=== PATIENT | female | born 1995 | race African-American/Black ===

== ENCOUNTER 2018-08-11 04:57 | Emergency (ER) | payer MEDICARE, MEDICAID, SELFPAY ==
[2018-08-11 05:01] VITALS: BP 136/74; PULSE 101; RESP 22; TEMP 37.1; O2SAT 100
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
[2018-08-11 06:59] VITALS: BP 113/69; PULSE 80; RESP 18; TEMP 36.7; O2SAT 99
== END 2018-08-11 07:00 | disposition home or self-care (01) ==
LOC: ER 06:46
PROVIDERS: Emergency Provider Student in an Organized Health Care Education/Training Program; PCP Nurse Practitioner
DX: R07.81 Pleurodynia (principal); Y04.2XXA Assault by strike against or bumped into by another person, initial encounter
CPT/HCPCS: 99283; 71046

== ENCOUNTER 2018-08-15 01:25 | Emergency (ER) | payer MEDICARE, MEDICAID, SELFPAY ==
[2018-08-15 01:29] VITALS: PULSE 72; RESP 16; TEMP 36.3
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
[2018-08-15 02:09] VITALS: PULSE 72; RESP 16; TEMP 36.3
== END 2018-08-15 01:50 | disposition left before discharge ==
LOC: ER 02:31
PROVIDERS: Emergency Provider Physician Assistant; PCP Nurse Practitioner
DX: Z53.29 Procedure and treatment not carried out because of patient's decision for other reasons (principal); Z53.21 Procedure and treatment not carried out due to patient leaving prior to being seen by health care provider

== ENCOUNTER 2018-08-19 20:11 | Emergency (ER) | payer MEDICARE, MEDICAID, SELFPAY ==
[2018-08-19 20:22] VITALS: BP 99/38; PULSE 110; RESP 30; TEMP 36.8
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
--- NOTE | 2018-08-19 21:19 | NUR.NOTE ---
Verbal report to Petrona Esparza Note:
--- NOTE | 2018-08-19 21:26 | NUR.NOTE ---
Nursing Note: report received. Pt provided phone and phone number/card for [facility] services. Has not called at this time. Provided urine sample. Will continue to monitor. Has spoken to father, mother and friend via text and phone call- assisted and facilitated through ED staff.
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
[2018-08-20 00:08] VITALS: BP 105/85; PULSE 88; RESP 18; TEMP 36.8; O2SAT 98
== END 2018-08-20 00:08 | disposition home or self-care (01) ==
PROVIDERS: Emergency Provider Emergency Medicine; PCP Nurse Practitioner
DX: S00.83XA Contusion of other part of head, initial encounter (principal); S00.03XA Contusion of scalp, initial encounter; S10.93XA Contusion of unspecified part of neck, initial encounter; Y04.8XXA Assault by other bodily force, initial encounter; Y07.03 Male partner, perpetrator of maltreatment and neglect; J06.9 Acute upper respiratory infection, unspecified
CPT/HCPCS: 81025; 99285; 70450; 70486; 70490

== ENCOUNTER 2018-09-28 14:56 | Outpatient (REF) | payer MEDICARE, MEDICAID, SELFPAY ==
[2018-09-28 19:56] LABS: HCT 39.5 % (36.0-46.0); HGB 12.9 g/dL (12.0-15.5); Mean Corp. HGB Concentration 32.7 g/dL (32.0-36.0); Mean Corpuscular Hemoglobin 25.8 pg (27.0-33.0); Mean Platelet Volume 11.6 fL (8.0-11.0); Platelet Count 287 x1000/uL (130-400); RBC Distribution Width 15.4 % (11.7-14.6)
[2018-09-28 20:50] LABS: Anion Gap 11.5 mmol/L (3-11); BUN 12 mg/dL (7-18); CO2 26.5 mmol/L (21.0-32.0); CREATININE 0.88 mg/dL (0.55-1.02); Calcium 9.3 mg/dL (8.5-10.1); Chloride 100 mmol/L (98-107); Glucose 85 mg/dL (70-100); Potassium 4.2 mmol/L (3.5-5.1); Sodium 138 mmol/L (136-145)
== END 2018-09-28 15:16 ==
LOC: NCHCN 14:56
PROVIDERS: PCP Nurse Practitioner; Visit Provider Family Medicine
DX: F31.30 Bipolar disorder, current episode depressed, mild or moderate severity, unspecified (principal)
CPT/HCPCS: 80048; 85027; 83735; 84443

== ENCOUNTER 2022-10-11 09:08 | Emergency (ER) | payer OTHER, MEDICAID, SELFPAY ==
[2022-10-11 09:28] VITALS: BP 129/83; PULSE 81; RESP 16; TEMP 37; O2SAT 97
[2022-10-11] MEDS: Normal Saline 1,000 ML 1000 ML IV (09:49)
[2022-10-11 09:50] LABS: Abs Immature Grans 0.01 10^3/uL (0.0-0.06); Absolute Basophil Count 0.04 10^3/uL (0.0-0.2); Absolute Eosinophil Count 0.09 10^3/uL (0.0-0.7); Absolute Lymphocyte Count 1.23 10^3/uL (1.2-3.4); Absolute Monocyte Count 0.34 10^3/uL (0.1-0.8); Absolute Neutrophil Count 4.75 10^3/uL (1.2-6.7); Basophils % 0.6; Eosinophils % 1.4; HCT 38.7 % (36.0-46.0); HGB 12.2 g/dL (11.2-15.7); Immature Grans % 0.2; MCH 24.1 pg (27.0-33.0); MCHC 31.5 % (32.0-36.0); MCV 76 fL (80-95); MPV 10.9 fL (8.0-11.0); Monocytes % 5.3; Neutrophils % 73.5; Platelet Count 289 10^3/uL (130-400); RBC 5.07 10^6/uL (3.93-5.22); RDW 16.8 % (11.7-14.6); RDW-SD 46.2 fL; WBC 6.46 10^3/uL (4.4-10.8)
[2022-10-11 09:59] LABS: Bilirubin Negative (Negative); Blood Large (Negative); Clarity Sl Cloudy (Clear); Glucose Negative (Negative); Ketones Negative (Negative); Leukocyte Esterase Moderate (Negative); Nitrite Negative (Negative); Specific Gravity >= 1.030 (1.005-1.025); Urobilinogen 0.2 EU/dL (Up TO 0.2)
[2022-10-11] MEDS: ACETAMINOPHEN 1,000 MG/100 ML BTL 400 MG (09:59)
[2022-10-11 10:13] LABS: Bacteria Few HPF (Negative); C & S Indicated? No/Sq. Contamination; Casts Negative LPF (Negative); Crystals Negative HPF (Negative); Epithelial Cells Many HPF (Negative); Mucus Negative (Negative); RBC >50 HPF (0-2); WBC 20-50 HPF (0-5)
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
[2022-10-11 10:18] LABS: ALT 71 U/L (14-59); AST 25 U/L (15-37); Albumin 4.2 g/dL (3.4-5.0); Alkaline Phosphatase 75 U/L (46-116); Anion Gap 5.6 mmol/L (3-11); BUN 18 mg/dL (7-18); Bilirubin, Total 1.2 mg/dL (0.2-1.0); CO2 30.4 mmol/L (21.0-32.0); Calcium 9.3 mg/dL (8.5-10.1); Chloride 101 mmol/L (98-107); Estimated GFR 79.68 (mL/min/1.73m2); Glucose 83 mg/dL (74-106); Lipase 50 U/L (73-393); Potassium 3.7 mmol/L (3.5-5.1); Sodium 137 mmol/L (136-145)
--- NOTE | 2022-10-11 10:45 | W.ED.GENAD ---
Discharge Plan Disposition Patient Disposition: Home Condition: Stable Discharge Details Clinical Impression: UTI (urinary tract infection), Hydronephrosis Primary Care Provider: Jennifer Brown ED Provider: Levar Weiss Home Meds and New Rx's Prescriptions: New sulfamethoxazole-trimethoprim [Bactrim DS] 800-160 mg tablet 1 tab PO BID Qty: 20 0RF Discharge Instructions Instructions: Urinary Tract Infection in Women (ED), Hydronephrosis (ED) Additional Instructions: Bactrim as directed. [id number] Tylenol and/or Motrin as directed for discomfort. Plenty of fluids to avoid dehydration. I have placed a call to our urology team and placed you on our care management team to help expedite outpatient urology follow-up. It is extremely important that you follow-up with urology and have the stents removed. Please contact the office of Dr. Luis tomorrow. Otherwise, watch for new or worsening symptoms and return to the ER for any concerns. Referrals: Luke Luis MD [ [facility] STAFF PHYSICIAN] - Medical Decision Making This is a 27-year-old female who reports that approximately 1 year ago she had bilateral renal stents placed secondary to a severe infection. This occurred in [place], she has subsequently moved to this area, and the stents were never removed. She does not have a PCP or urologist here. Patient reports UTI-like symptoms over the past week associated with some back pain, mild nausea but denies fever or vomiting. Denies vaginal bleeding or discharge. Clinically she appears well, nontoxic, hemodynamically stable. Plan to obtain IV access, routine screening laboratory values and a urinalysis. The CBC does not reveal any evidence of leukocytosis. Electrolytes unremarkable. Total bili 1.2 AST 25 ALT 71 alk phosphatase 75, abdomen is soft, nontender, no right upper quadrant discomfort. Lipase 50. Creatinine 1.0 with a GFR of 79.68. Initial urinalysis reveals blood, leuk esterase, both red and white cells however there are epithelial cells. Certainly contaminated, will obtain another urine sample. Repeat urine sample reveals large blood, small leuk esterase, greater than 50 red cells, 20-50 white cells, many epithelial cells, few bacteria. Unfortunately again with contamination but given her symptoms, leuk esterase, white cells, I do believe initiating antibiotic therapy is prudent. I do question if the duration of stents in place has caused some epithelization. CT imaging reveals moderate hydronephrosis bilaterally Overall patient appears well, nontoxic, afebrile, no evidence of leukocytosis. No evidence of tachycardia. Stent is in place for at least 1 year. Patient was initiated with p.o. Bactrim. A call was placed to our urology team, Dr. Luis, but unfortunately he is not on-call. At this time I see no clear indication that the patient requires IV antibiotics or admission but certainly stent removal in the near future is likely prudent. I have placed the patient on both the urology list in our care management list to help expedite outpatient urology follow-up. Standard discharge and return precautions were provided. Patient understands, is agreeable to this plan, and has no additional questions or concerns upon discharge. This documentation was generated using [employer] system, please disregard any oddities of phrase or misspellings. Medical Records Medical records reviewed: Yes I reviewed the patient's medical records. Imaging Data Radiologic Study: Attestation: I personally reviewed and interpreted this imaging study as follows: Imaging: CT Scan Radiologist's impression: PROCEDURE INFORMATION: Exam: CT Abdomen And Pelvis With Contrast Exam date and time: 10/11/2022 11:03 AM Age: 27 years old Clinical indication: Other: Back/abd pain, HX of renal stent, bili 1.2; Prior surgery; Surgery date: 6+ months; Surgery type: Reanl stents TECHNIQUE: Imaging protocol: Computed tomography of the abdomen and pelvis with contrast. Contrast material: OMNIPAQUE 350; Contrast volume: 80 ml; Contrast route: INTRAVENOUS (IV); COMPARISON: No relevant prior studies available. FINDINGS: Lungs: Visualized lung bases are clear. Liver: Normal. No mass or intrahepatic biliary ductal dilatation. Gallbladder and bile ducts: Normal. No calcified stones. No ductal dilation. Pancreas: Normal. No mass or ductal dilation. Spleen: Normal. No splenomegaly. Adrenal glands: Normal. No mass. Kidneys and ureters: Kidneys show bilateral moderate hydronephrosis with bilateral ureteral stents extending from the renal pelvis to the bladder. There is normal enhancement of the renal cortex. Stomach and bowel: Unremarkable. No significant dilatation or obstruction. No mucosal thickening or visible mass. Appendix: No evidence of appendicitis. Intraperitoneal space: Unremarkable. No free air. No significant fluid collection. Vasculature: Unremarkable. No abdominal aortic aneurysm or significant atherosclerosis. Lymph nodes: No enlarged retroperitoneal or mesenteric lymph nodes.Urinary bladder: See Kidneys and ureters finding. Reproductive: Unremarkable as visualized. Bones/joints: Unremarkable. No acute fracture. No lytic lesion. Soft tissues: Unremarkable. IMPRESSION: Bilateral renal stents in place with moderate hydronephrosis. No other acute abnormality Lab Data Lab results reviewed: Yes I reviewed the patient's lab results. Labs: Laboratory Tests Range/Units 10/11/22 10/11/22 10/11/22 09:35 09:45 09:45 WBC (4.4-10.8) 10^3/uL 6.46 RBC (3.93-5.22) 10^6/uL 5.07 Hgb (11.2-15.7) g/dL 12.2 Hct (36.0-46.0) % 38.7 MCV (80-95) fL 76 L MCH (27.0-33.0) pg 24.1 L MCHC (32.0-36.0) % 31.5 L RDW (11.7-14.6) % 16.8 H Plt Count (130-400) 10^3/uL 289 MPV (8.0-11.0) fL 10.9 Immature Gran % 0.2 Neutrophils % 73.5 Lymphocytes % 19.0 Monocytes % 5.3 Eosinophils % 1.4 Basophils % 0.6 Nucleated RBC % (0.0-0.3) % 0.0 Absolute Neutrophils (1.2-6.7) 10^3/uL 4.75 Absolute Lymphocytes (1.2-3.4) 10^3/uL 1.23 Absolute Monocytes (0.1-0.8) 10^3/uL 0.34 Absolute Eosinophils (0.0-0.7) 10^3/uL 0.09 Absolute Basophils (0.0-0.2) 10^3/uL 0.04 Sodium (136-145) mmol/L 137 Potassium (3.5-5.1) mmol/L 3.7 Chloride (98-107) mmol/L 101 Carbon Dioxide (21.0-32.0) mmol/L 30.4 Anion Gap (3-11) mmol/L 5.6 BUN (7-18) mg/dL 18 Creatinine (0.55-1.02) mg/dL 1.0 Est GFR (CKD-EPI 2020) (mL/min/1.73m2) 79.68 Glucose (74-106) mg/dL 83 Calcium (8.5-10.1) mg/dL 9.3 Total Bilirubin (0.2-1.0) mg/dL 1.2 H AST (15-37) U/L 25 ALT (14-59) U/L 71 H Alkaline Phosphatase (46-116) U/L 75 Total Protein (6.4-8.2) g/dL 8.0 Albumin (3.4-5.0) g/dL 4.2 Lipase (73-393) U/L 50 Urine Color (Yellow) Yellow Urine Clarity (Clear) Sl Cloudy Urine pH (5-8) 6.0 Ur Specific [place] (1.005-1.025) >= 1.030 H Urine Protein (Negative) mg/dL >=300 H Urine Ketones (Negative) mg/dL Negative Urine Blood (Negative) Large H Urine Nitrite (Negative) Negative Urine Bilirubin (Negative) Negative Urine Urobilinogen (Up TO 0.2) EU/dL 0.2 Ur Leukocyte Esterase (Negative) Moderate H Urine RBC (0-2) HPF >50 H Urine WBC (0-5) HPF 20-50 H Ur Epithelial Cells (Negative) HPF Many Urine Crystals (Negative) HPF Negative Urine Bacteria (Negative) HPF Few Urine Casts (Negative) LPF Negative Urine Mucus (Negative) Negative Urine Other (Negative) Ur Culture Indicated? No/Sq. Contamination Urine Glucose (Negative) mg/dL Negative Range/Units 10/11/22 11:00 WBC (4.4-10.8) 10^3/uL RBC (3.93-5.22) 10^6/uL Hgb (11.2-15.7) g/dL Hct (36.0-46.0) % MCV (80-95) fL MCH (27.0-33.0) pg MCHC (32.0-36.0) % RDW (11.7-14.6) % Plt Count (130-400) 10^3/uL MPV (8.0-11.0) fL Immature Gran % Neutrophils % Lymphocytes % Monocytes % Eosinophils % Basophils % Nucleated RBC % (0.0-0.3) % Absolute Neutrophils (1.2-6.7) 10^3/uL Absolute Lymphocytes (1.2-3.4) 10^3/uL Absolute Monocytes (0.1-0.8) 10^3/uL Absolute Eosinophils (0.0-0.7) 10^3/uL Absolute Basophils (0.0-0.2) 10^3/uL Sodium (136-145) mmol/L Potassium (3.5-5.1) mmol/L Chloride (98-107) mmol/L Carbon Dioxide (21.0-32.0) mmol/L Anion Gap (3-11) mmol/L BUN (7-18) mg/dL Creatinine (0.55-1.02) mg/dL Est GFR (CKD-EPI 2020) (mL/min/1.73m2) Glucose (74-106) mg/dL Calcium (8.5-10.1) mg/dL Total Bilirubin (0.2-1.0) mg/dL AST (15-37) U/L ALT (14-59) U/L Alkaline Phosphatase (46-116) U/L Total Protein (6.4-8.2) g/dL Albumin (3.4-5.0) g/dL Lipase (73-393) U/L Urine Color (Yellow) Yellow Urine Clarity (Clear) Sl Cloudy Urine pH (5-8) 6.0 Ur Specific [place] (1.005-1.025) >= 1.030 H Urine Protein (Negative) mg/dL >=300 H Urine Ketones (Negative) mg/dL Negative Urine Blood (Negative) Large H Urine Nitrite (Negative) Negative Urine Bilirubin (Negative) Negative Urine Urobilinogen (Up TO 0.2) EU/dL 0.2 Ur Leukocyte Esterase (Negative) Small H Urine RBC (0-2) HPF >50 H Urine WBC (0-5) HPF 20-50 H Ur Epithelial Cells (Negative) HPF Many Urine Crystals (Negative) HPF Negative Urine Bacteria (Negative) HPF Few Urine Casts (Negative) LPF Negative Urine Mucus (Negative) Trace Urine Other (Negative) Few Yeast Ur Culture Indicated? No/Sq. Contamination Urine Glucose (Negative) mg/dL Negative Sign Out No HPI General Mode of arrival: ambulatory. Date/Time Provider Initiated Documentation: 10/11/22 09:34. Limitations to Documentation: no limitations. Information obtained by: patient. History of Present Illness 27 year old F presents to the emergency department with the chief complaint of back pain, dysuria, described as moderate, with intensity rated at 6. Quality is described as aching, and is localized to the buttocks and right (worse than left). Patient flank (Right). Patient started experiencing this week(s) (1) and it has been constant. No relieving factors improve symptom(s), No exacerbating factors reported . Patient notes other (Hematuria, urinary frequency). Patient did receive the following treatments prior to arrival, none Related Data Home Medications Medication Instructions Recorded Confirmed sulfamethoxazole 800 1 tab PO BID #20 tabs 10/11/22 mg-trimethoprim 160 mg tablet (Bactrim DS) Previous Rx's Medication Instructions Recorded sulfamethoxazole 800 1 tab PO BID #20 tabs 10/11/22 mg-trimethoprim 160 mg tablet (Bactrim DS) Allergies Allergy/AdvReac Type Severity Reaction Status Date / Time Penicillins Allergy Severe Unverified 10/11/22 09:53 amoxicillin Allergy Intermediate reaction Unverified 10/11/22 09:53 unknown bupropion HCl Allergy Intermediate Reaction Unverified 10/11/22 09:53 [From Wellbutrin] Unknown General Stated Complaint: Urinary YAYA: 3 Review of Systems Constitutional Constitutional: Denies fever(s) Cardiovascular Cardiovascular: Denies chest pain Respiratory Respiratory: Denies cough Gastrointestinal Gastrointestinal: Denies abdominal pain, Reports nausea and Denies vomiting Genitourinary Genitourinary: Denies abnormal vaginal bleeding, Reports hematuria, Reports dysuria, Denies pelvic pain and Denies vaginal discharge Musculoskeletal Musculoskeletal: Reports back pain Integumentary/Breasts Skin/Breast: Denies rash PFSH All Active Problems UTI (urinary tract infection) (Acute) Hydronephrosis (Acute) Medical History Bipolar disorder Social History Smoking/Tobacco Use Status: Never Smoking risk assessment performed?: Yes Alcohol Intake: former Drug use: Occasionally Substance use type: marijuana Do you feel safe at home: Yes Do you feel safe in your relationship?: Yes Exam Const General: cooperative, healthy appearing, comfortable and no acute distress Orientation: alert and awake [facility] Head: normal to inspection, normocephalic and atraumatic Face and sinus: normal facial exam Mouth: oral mucosae normal and moist mucous membranes Eyes Conjunctivae: conjunctivae normal Neck Neck: normal visual inspection, full ROM, no meningeal signs, trachea midline and supple Resp Effort & Inspection: normal respiratory effort and able to speak in complete sentences Auscultation: clear to auscultation bilaterally Cardio Rate: regular rate Rhythm: regular rhythm GI Inspection: normal to inspection Palpation: soft, not firm, no guarding, no pulsatile masses and nontender Auscultation: normal bowel sounds Back/Spine/Pelvis Back: CVA tenderness (Bilateral, right worse than left) and back tenderness (Diffuse mild lumbar) Skin General skin exam: no rashes or lesions noted Neuro General: patient alert, patient awake, moves all extremities and no focal motor deficits Cognition: normal cognition Speech: speech normal Gait: normal gait Sensory Exam: no sensory deficits noted Psych Appearance: grossly normal Mental Status: mental status grossly normal Course Vital Signs Vital signs: Vital Signs Temperature 37.0 C 10/11/22 09:28 Pulse 81 10/11/22 09:28 Respiratory Rate 16 10/11/22 09:28 Blood Pressure 129/83 10/11/22 09:28 Pulse Oximetry 97 10/11/22 09:28 Temperature 37.0 C 10/11/22 09:28 Temperature Source Temporal Artery Scan 10/11/22 09:28 Pulse 81 10/11/22 09:28 Respiratory Rate 16 10/11/22 09:28 Respiratory Effort Non-Labored 10/11/22 09:50 Blood Pressure 129/83 10/11/22 09:28 Blood Pressure Position Sitting 10/11/22 09:28 Pulse Oximetry 97 10/11/22 09:28 Oxygen Delivery Method Room Air 10/11/22 09:28 Oxygen Flow Rate 0 10/11/22 09:28 Pain Level 7 10/11/22 09:50 Lab/Test Results Lab/Test Results: Laboratory Tests Range/Units 10/11/22 10/11/22 10/11/22 09:35 09:45 09:45 WBC (4.4-10.8) 10^3/uL 6.46 RBC (3.93-5.22) 10^6/uL 5.07 Hgb (11.2-15.7) g/dL 12.2 Hct (36.0-46.0) % 38.7 MCV (80-95) fL 76 L MCH (27.0-33.0) pg 24.1 L MCHC (32.0-36.0) % 31.5 L RDW (11.7-14.6) % 16.8 H Plt Count (130-400) 10^3/uL 289 MPV (8.0-11.0) fL 10.9 Immature Gran % 0.2 Neutrophils % 73.5 Lymphocytes % 19.0 Monocytes % 5.3 Eosinophils % 1.4 Basophils % 0.6 Nucleated RBC % (0.0-0.3) % 0.0 Absolute Neutrophils (1.2-6.7) 10^3/uL 4.75 Absolute Lymphocytes (1.2-3.4) 10^3/uL 1.23 Absolute Monocytes (0.1-0.8) 10^3/uL 0.34 Absolute Eosinophils (0.0-0.7) 10^3/uL 0.09 Absolute Basophils (0.0-0.2) 10^3/uL 0.04 Sodium (136-145) mmol/L 137 Potassium (3.5-5.1) mmol/L 3.7 Chloride (98-107) mmol/L 101 Carbon Dioxide (21.0-32.0) mmol/L 30.4 Anion Gap (3-11) mmol/L 5.6 BUN (7-18) mg/dL 18 Creatinine (0.55-1.02) mg/dL 1.0 Est GFR (CKD-EPI 2020) (mL/min/1.73m2) 79.68 Glucose (74-106) mg/dL 83 Calcium (8.5-10.1) mg/dL 9.3 Total Bilirubin (0.2-1.0) mg/dL 1.2 H AST (15-37) U/L 25 ALT (14-59) U/L 71 H Alkaline Phosphatase (46-116) U/L 75 Total Protein (6.4-8.2) g/dL 8.0 Albumin (3.4-5.0) g/dL 4.2 Lipase (73-393) U/L 50 Urine Color (Yellow) Yellow Urine Clarity (Clear) Sl Cloudy Urine pH (5-8) 6.0 Ur Specific [place] (1.005-1.025) >= 1.030 H Urine Protein (Negative) mg/dL >=300 H Urine Ketones (Negative) mg/dL Negative Urine Blood (Negative) Large H Urine Nitrite (Negative) Negative Urine Bilirubin (Negative) Negative Urine Urobilinogen (Up TO 0.2) EU/dL 0.2 Ur Leukocyte Esterase (Negative) Moderate H Urine RBC (0-2) HPF >50 H Urine WBC (0-5) HPF 20-50 H Ur Epithelial Cells (Negative) HPF Many Urine Crystals (Negative) HPF Negative Urine Bacteria (Negative) HPF Few Urine Casts (Negative) LPF Negative Urine Mucus (Negative) Negative Ur Culture Indicated? No/Sq. Contamination Urine Glucose (Negative) mg/dL Negative POC- Test(urine) Negative
[2022-10-11] MEDS: Omnipaque 350 MG/ML 100 ML BTL IJ (10:56)
[2022-10-11] MEDS: Normal Saline - Diluent 50 ML VIAL IV (10:57)
[2022-10-11] MEDS: Normal Saline Flush 10 ML SYR IVP (10:58)
[2022-10-11 11:10] LABS: Bilirubin Negative (Negative); Blood Large (Negative); Clarity Sl Cloudy (Clear); Glucose Negative (Negative); Ketones Negative (Negative); Leukocyte Esterase Small (Negative); Nitrite Negative (Negative); Specific Gravity >= 1.030 (1.005-1.025); Urobilinogen 0.2 EU/dL (Up TO 0.2)
[2022-10-11 11:23] LABS: Bacteria Few HPF (Negative); C & S Indicated? No/Sq. Contamination; Casts Negative LPF (Negative); Crystals Negative HPF (Negative); Epithelial Cells Many HPF (Negative); Mucus Trace (Negative); Other Cells Few Yeast (Negative); RBC >50 HPF (0-2); WBC 20-50 HPF (0-5)
--- NOTE | 2022-10-11 11:26 | DI.VRAD_ITS ---
PROCEDURE INFORMATION: Exam: CT Abdomen And Pelvis With Contrast Exam date and time: 10/11/2022 11:03 AM Age: 27 years old Clinical indication: Other: Back/abd pain, HX of renal stent, bili 1.2; Prior surgery; Surgery date: 6+ months; Surgery type: Reanl stents TECHNIQUE: Imaging protocol: Computed tomography of the abdomen and pelvis with contrast. Contrast material: OMNIPAQUE 350; Contrast volume: 80 ml; Contrast route: INTRAVENOUS (IV); COMPARISON: No relevant prior studies available. FINDINGS: Lungs: Visualized lung bases are clear. Liver: Normal. No mass or intrahepatic biliary ductal dilatation. Gallbladder and bile ducts: Normal. No calcified stones. No ductal dilation. Pancreas: Normal. No mass or ductal dilation. Spleen: Normal. No splenomegaly. Adrenal glands: Normal. No mass. Kidneys and ureters: Kidneys show bilateral moderate hydronephrosis with bilateral ureteral stents extending from the renal pelvis to the bladder. There is normal enhancement of the renal cortex. Stomach and bowel: Unremarkable. No significant dilatation or obstruction. No mucosal thickening or visible mass. Appendix: No evidence of appendicitis. Intraperitoneal space: Unremarkable. No free air. No significant fluid collection. Vasculature: Unremarkable. No abdominal aortic aneurysm or significant atherosclerosis. Lymph nodes: No enlarged retroperitoneal or mesenteric lymph nodes. Urinary bladder: See Kidneys and ureters finding. Reproductive: Unremarkable as visualized. Bones/joints: Unremarkable. No acute fracture. No lytic lesion. Soft tissues: Unremarkable. IMPRESSION: Bilateral renal stents in place with moderate hydronephrosis. No other acute abnormality. Dictated and Authenticated by: Damir Driver MD. Ordering:IKE Cristobal MD
[2022-10-11 12:15] VITALS: BP 106/88; PULSE 73; TEMP 36.6; O2SAT 100
[2022-10-11] MEDS: Sulfameth/Trimeth DS TAB 1 TAB PO (12:15)
--- NOTE | 2022-10-11 12:59 | NUR.NOTE ---
Nursing Note: Faxed Referral to [facility] Urology for Pylo with 2 stents, need APT within 24-48 hours - pper Levar LUNSFORD
== END 2022-10-11 12:28 | disposition home or self-care (01) ==
PROVIDERS: Emergency Provider Physician Assistant; PCP Nurse Practitioner
DX: N13.2 Hydronephrosis with renal and ureteral calculous obstruction (principal); N39.0 Urinary tract infection, site not specified
CPT/HCPCS: 36415; 80053; 81025; 83690; 96360; 99285; 74177; 81003; 81015; 85025; 99284; J0131; J3490